=== PATIENT | female | born 1955 | race Caucasian/White ===

== ENCOUNTER 2018-07-24 15:05 | Emergency (ER) | payer BC ==
[2018-07-24 16:04] LABS: #Basophils 0.1 thou/uL (0.0-0.2); #Lymphocytes 1.8 thou/uL (1.20-3.40); #Monocytes 0.5 thou/uL (0.11-0.59); #Neutrophils 2.6 thou/uL (1.40-6.50); %Basophils 1.2 % (0.0-1.0); %Eosinophils 0.5 % (0.0-10.0); %Lymphocytes 35.6 % (21.0-51.0); %Monocytes 10.9 % (0.0-10.0); %Neutrophils 51.8 % (42.0-75.0); Hemoglobin 13.7 g/dL (12.0-16.0); Mean Corpuscular HGB CONC 34.1 g/dL (32.0-36.0); Mean Corpuscular Hemoglobin 32.9 pg (27.0-31.0); Mean Corpuscular Volume 96.5 fL (78.0-98.0); Mean Platelet Volume 6.8 fL (7.4-10.4); Platelet Count 318 thou/uL (130-400); RBC Distribution Width 11.2 % (11.5-14.5); Red Blood Cell (RBC) Count 4.16 mill/uL (4.20-5.40); White Blood Cell (WBC) Count 4.9 thou/uL (4.8-10.8)
[2018-07-24 16:28] LABS: ALT (SGPT) 32 U/L (8-55); AST (SGOT) 26 U/L (5-34); Albumin 4.3 g/dL (3.4-4.8); Alkaline Phosphatase 65 U/L (40-150); Anion Gap 13 mmol/L (10-20); BUN (Urea Nitrogen) 10 mg/dL (9.8-20.1); Bilirubin, Total 0.8 mg/dL (0.2-1.2); Calc. Creatinine Clearance 0 mL/min (70-130); Carbon Dioxide 26 mmol/L (23-31); Chloride 101 mmol/L (98-107); Estimated GFR-MDRD 73; Globulin 2.4 g/dL (2.4-3.5); Glucose 129 mg/dL (80-115); Lipase 18 U/L (8-78); Potassium 3.6 mmol/L (3.5-5.1); Protein, Total 6.7 g/dL (6.0-8.3); Sodium 136 mmol/L (136-145)
[2018-07-24] MEDS ORDERED: Iopamidol 370 76% 50 ML VIAL FS ONE (16:43)
[2018-07-24] MEDS ORDERED: ISOVUE-370 76%-LOCM 1 ML ONE (16:43)
[2018-07-24 17:18] LABS: Bilirubin Negative (Negative); Blood, Urine Negative (Negative); Clarity CLEAR (Clear); Glucose, Urine (Dipstick) Negative (Negative); Leukocyte Negative (Negative); Nitrite Negative (Negative); Protein, Urine (Dipstick) Negative (Neg-Trace); Specific Gravity, Urine 1.009 (1.002-1.036); Urobilinogen 0.2 mg/dL (0.2-1.0); pH, Urine 6.5 (5.0-9.0)
--- NOTE | 2018-07-24 18:10 | RAD ---
CHEST ONE VIEW: 07/24/18 HISTORY: Chest pain. COMPARISON: Radiograph 2015. FINDINGS: There is moderate dextroscoliosis thoracolumbar spine. No pneumothorax. No effusion. No acute osseous abnormality. Cardiac silhouette and mediastinal contours are similar. IMPRESSION: No acute intrathoracic abnormality. POS: [facility]
--- NOTE | 2018-07-24 20:37 | CT ---
CT ABDOMEN WITH CONTRAST CT PELVIS WITH CONTRAST 07/24/18 HISTORY: Right sided abdominal pain with initial onset two weeks ago. COMPARISON: None. TECHNIQUE: An abdomen and pelvic CT are performed with IV contrast. Enteric contrast administered. FINDINGS: ABDOMEN CT: The lung bases are clear. 8 mm hypodensity in the hepatic dome too small to characterize but is statistically favored to be a h epatic cyst. Hypodensities along the periphery of the spleen are also too small to characterize but are presumed t o represent small subcapsular cysts. The pancreas and adrenal glands have appropriate enhancement. No gastrohepatic, retrocrural or periportal lymphadenopathy. No mesenteric mass, lymphadenopathy, free air or free fluid. Symmetric enhancement of the kidneys. No obstructive uropathy. Decreased intra-abdominal fat limits evaluation for inflammatory change. No mesenteric mass, lymphade nopathy, free air or free fluid. Gastric mucosa, duodenum and multiple normal caliber small bowel loops are identified. There is mild thickening of the jejunal mucosa. Correlate for inflammation or infection. Ileocecal junction is norm al. Normal caliber air filled appendix is identified. No periappendiceal inflammation. Scattered feca l material in a nondistended, nondilated colon. Unremarkable gallbladder. CT PELVIS: No mass, lymphadenopathy, free air or free fluid. Urinary bladder is unremarkable. The uterus and adn exal structures are unremarkable. No lytic or blastic lesions in the osseous structures. IMPRESSION: 1. Normal caliber appendix. 2. Hypodensity in the spleen and liver, too small to characterize but statistically favored to b e cysts. 3. No evidence of obstructive uropathy. 4. Mucosal prominence of the jejunum. Correlate for infection or inflammatory process involving the jejunum. POS: [facility]
== END 2018-07-24 20:50 | disposition home or self-care (01) ==
LOC: ERS 15:05
DX: K76.89 Other specified diseases of liver (principal); D73.4 Cyst of spleen; I10 Essential (primary) hypertension; F17.210 Nicotine dependence, cigarettes, uncomplicated
CPT/HCPCS: 36415; 71045; 74177; 80053; 81003; 83605; 83690; 84484; 85025; 93005; 96360; 96361; Q9966; Q9967

== ENCOUNTER 2018-08-11 08:06 | Outpatient (CLI) | payer BC ==
--- NOTE | 2018-08-11 09:49 | ULT ---
RIGHT UPPER QUADRANT ULTRASOUND: History: Right upper quadrant pain. FINDINGS: Real-time imaging of the right upper quadrant shows a normal sized gallbladder. There is non-shadowin g adherent echogenic focus on the gallbladder wall measuring 2-3 mm in size compatible with small tati yp. There also appears to be a second small polyp present. The common duct is in the 3 mm range. Tech nologist reports a negative ultrasound Dominguez's sign. Right kidney is normal in size and nonobstructe d. Pancreas region is normal. Some trace free fluid is noted. IMPRESSION: 1. One, and possibly two small 2 mm gallbladder polyps. No stones identified. 2. Trace ascites adjacent to the liver. Incidental note is made of a small 1.5 cm hepatic cyst. The l iver measures 16.4 cm in length. POS: [facility]
== END 2018-08-11 08:07 | disposition home or self-care (01) ==
LOC: BICULT 08:06
PROVIDERS: ATTEND Internal Medicine Gastroenterology
DX: R10.11 Right upper quadrant pain (principal); R18.8 Other ascites
CPT/HCPCS: 76705

== ENCOUNTER 2023-07-16 17:40 | Emergency (ER) | payer MEDICARE, OTHER | END 2023-07-16 20:06 | disposition home or self-care (01) | LOC: ERS 17:40 | DX: S52.021A Displaced fracture of olecranon process without intraarticular extension of right ulna, initial encounter for closed fracture (principal); S59.901A Unspecified injury of right elbow, initial encounter; I10 Essential (primary) hypertension; W01.0XXA Fall on same level from slipping, tripping and stumbling without subsequent striking against object, initial encounter; Y93.01 Activity, walking, marching and hiking | CPT/HCPCS: 29105 ==

== ENCOUNTER 2023-07-21 11:09 | Outpatient (CLI) | payer MEDICARE, OTHER | END 2023-07-21 11:10 | disposition home or self-care (01) | LOC: LABBT 11:09 | PROVIDERS: ATTEND Orthopaedic Surgery | DX: Z01.810 Encounter for preprocedural cardiovascular examination (principal); S52.021A Displaced fracture of olecranon process without intraarticular extension of right ulna, initial encounter for closed fracture | CPT/HCPCS: 93005; 93010 ==

== ENCOUNTER 2024-02-26 09:57 | Emergency (ER) | payer MEDICARE, OTHER ==
[2024-02-26] MEDS ORDERED: Ketorolac Tromethamine 30 MG (1 mL) VIAL ONE (10:55)
== END 2024-02-26 11:19 | disposition home or self-care (01) ==
LOC: ERS 09:57
DX: M54.50 Low back pain, unspecified (principal); I10 Essential (primary) hypertension; X50.9XXA Other and unspecified overexertion or strenuous movements or postures, initial encounter
CPT/HCPCS: 96372; 99283; J1885

== ENCOUNTER 2024-03-10 09:13 | Outpatient (CLI) | payer MEDICARE, OTHER | END 2024-03-10 09:14 | disposition home or self-care (01) | LOC: BICRAD 09:13 | PROVIDERS: ATTEND Family Medicine | DX: M54.42 Lumbago with sciatica, left side (principal); M47.816 Spondylosis without myelopathy or radiculopathy, lumbar region; R93.7 Abnormal findings on diagnostic imaging of other parts of musculoskeletal system | CPT/HCPCS: 72100 ==

== ENCOUNTER 2024-03-15 08:25 | Outpatient (CLI) | payer MEDICARE, OTHER | END 2024-03-15 08:26 | disposition home or self-care (01) | LOC: MRI 08:25 | PROVIDERS: ATTEND Family Medicine | DX: M51.16 Intervertebral disc disorders with radiculopathy, lumbar region (principal); M47.26 Other spondylosis with radiculopathy, lumbar region; M89.9 Disorder of bone, unspecified | CPT/HCPCS: 72148 ==

== ENCOUNTER 2024-03-16 14:23 | Outpatient (CLI) | payer MEDICARE, OTHER | END 2024-03-16 14:24 | disposition home or self-care (01) | LOC: BICRAD 14:23 | PROVIDERS: ATTEND Family Medicine | DX: C79.51 Secondary malignant neoplasm of bone (principal); R91.8 Other nonspecific abnormal finding of lung field | CPT/HCPCS: 71046 ==

== ENCOUNTER 2024-03-25 13:15 | Outpatient (CLI) | payer MEDICARE, OTHER | END 2024-03-25 13:16 | disposition home or self-care (01) | LOC: PET 13:15 | PROVIDERS: ATTEND Internal Medicine | DX: C34.31 Malignant neoplasm of lower lobe, right bronchus or lung (principal); R91.8 Other nonspecific abnormal finding of lung field; M89.9 Disorder of bone, unspecified | CPT/HCPCS: 78815; A9552 ==

== ENCOUNTER → 2024-03-29 | Day surgery (SDC) | payer MEDICARE, OTHER ==
[~2024-03-29] MED LIST: Lidocaine 1% w/Epinephrine 1:100K 20 ML VIAL ONE; Midazolam HCl 2 mg/2 ml Vial ONE; Sodium Bicarbonate 2.5 MEQ/5 ML SDV ONE; fentaNYL 50 mcg/mL 1 mL Vial ONE
[2024-03-29 12:02] LABS: INR-International Normal Ratio 1.1; PTT 29.8 sec (22.9-36.1); Prothrombin Time 13.8 sec (12.0-14.7)
== END ==
LOC: CT 11:31
PROVIDERS: ATTEND Radiology Radiation Oncology
PROC: 07DR3ZX Extraction of Iliac Bone Marrow, Percutaneous Approach, Diagnostic (ICD-10-PCS; principal; 2024-03-29)
DX: C79.51 Secondary malignant neoplasm of bone (principal); Z79.899 Other long term (current) drug therapy; Z88.1 Allergy status to other antibiotic agents
CPT/HCPCS: 20225; 77012; 85610; 85730; 88333; 88334; J2250; J3010; 88307; 88341; 88342; 99152; 99153

== ENCOUNTER 2024-04-12 16:28 | Inpatient (IN) | payer MEDICARE, OTHER ==
[2024-04-12 19:29] LABS: #Basophils 0.03 10x3/uL (0.0-0.2); %Basophils 0.4 % (0.0-1.0); %Eosinophils 3.9 % (0.0-10.0); %Lymphocytes 6.5 % (21.0-51.0); %Neutrophils 78.5 % (42.0-75.0); Hematocrit 34.3 % (36.0-47.0); Hemoglobin 11.6 g/dL (12.0-16.0); Mean Corpuscular HGB CONC 33.8 g/dL (32.0-36.0); Mean Corpuscular Hemoglobin 30.2 pg (27.0-31.0); Mean Corpuscular Volume 89.3 fL (78.0-98.0); Mean Platelet Volume 8.7 fL (7.4-10.4); Platelet Count 496 10x3/uL (130-400); RBC Distribution Width 12.4 % (11.5-14.5); Red Blood Cell (RBC) Count 3.84 mill/uL (4.20-5.40)
[2024-04-12 19:43] LABS: ALT (SGPT) 11 U/L (8-55); AST (SGOT) 16 U/L (5-34); Albumin 3.3 g/dL (3.4-4.8); Alkaline Phosphatase 115 U/L (40-110); Anion Gap 17 mmol/L (10-20); BUN (Urea Nitrogen) 14 mg/dL (9.8-20.1); Bilirubin, Total 0.7 mg/dL (0.2-1.2); Calc. Creatinine Clearance 0 mL/min (70-130); Calcium 9.8 mg/dL (7.8-10.44); Carbon Dioxide 23 mmol/L (23-31); Chloride 92 mmol/L (98-107); Estimated GFR 94; Globulin 4.2 g/dL (2.4-3.5); Glucose 93 mg/dL (80-115); Potassium 4.1 mmol/L (3.5-5.1); Protein, Total 7.5 g/dL (5.8-8.1); Sodium 128 mmol/L (136-145)
[2024-04-12] MEDS ORDERED: Morphine 4 MG/ML VIAL ONE (22:15)
[2024-04-12] MEDS ORDERED: Ondansetron PF 4 MG/2 ML Vial ONE (22:15)
[2024-04-12] MEDS ORDERED: Ketorolac Tromethamine 30 MG (1 mL) VIAL ONE (22:15)
[2024-04-12] MEDS ORDERED: Ondansetron PF 4 MG/2 ML Vial IVP PRN (23:15)
[2024-04-12] MEDS ORDERED: Acetaminophen 325 MG TAB PO PRN (23:15)
[2024-04-13] MEDS ORDERED: Morphine 4 MG/ML VIAL ONE (00:27)
[2024-04-13] MEDS: Morphine 2 MG/ML VIAL SLOW IVP PRN (00:47)
[2024-04-13] MEDS: Sodium Chloride 0.9% 1,000 ML IV SCH (00:48)
[2024-04-13 01:56] VITALS: BMI 17.7
[2024-04-13] MEDS ORDERED: HYDROcodone/Acetaminophen 10/325 mg Tablet ONE (02:15)
[2024-04-13] MEDS: HYDROcodone/Acetaminophen 10/325 mg Tablet PO PRN (02:24)
[2024-04-13] MEDS: fentaNYL 25 mcg Patch TD SCH (05:15)
[2024-04-13] MEDS ORDERED: HYDROmorphone 0.5 MG/0.5 ML SYRINGE ONE (05:17)
[2024-04-13] MEDS: HYDROmorphone 0.5 MG/0.5 ML SYRINGE SLOW IVP SCH ×2 (05:28→10:43)
[2024-04-13 06:11] LABS: #Basophils 0.04 10x3/uL (0.0-0.2); %Basophils 0.6 % (0.0-1.0); %Eosinophils 6.8 % (0.0-10.0); %Lymphocytes 7.1 % (21.0-51.0); %Monocytes 11.3 % (0.0-10.0); %Neutrophils 73.6 % (42.0-75.0); Hematocrit 31.1 % (36.0-47.0); Hemoglobin 10.6 g/dL (12.0-16.0); Mean Corpuscular HGB CONC 34.1 g/dL (32.0-36.0); Mean Corpuscular Hemoglobin 30.1 pg (27.0-31.0); Mean Corpuscular Volume 88.4 fL (78.0-98.0); Mean Platelet Volume 8.7 fL (7.4-10.4); Platelet Count 422 10x3/uL (130-400); RBC Distribution Width 12.3 % (11.5-14.5); Red Blood Cell (RBC) Count 3.52 mill/uL (4.20-5.40)
[2024-04-13 06:25] LABS: Anion Gap 15 mmol/L (10-20); BUN (Urea Nitrogen) 12 mg/dL (9.8-20.1); Calc. Creatinine Clearance 70 mL/min (70-130); Calcium 9.1 mg/dL (7.8-10.44); Carbon Dioxide 24 mmol/L (23-31); Chloride 95 mmol/L (98-107); Estimated GFR 97; Glucose 65 mg/dL (80-115); Potassium 3.5 mmol/L (3.5-5.1); Sodium 130 mmol/L (136-145)
[2024-04-13] MEDS ORDERED: fentaNYL 25 mcg Patch TD SCH (08:37)
[2024-04-13] MEDS ORDERED: Non-Formulary Item 1 EACH (Losartan Potassium [Losartan Potassium] 50 MG Tablet) PO SCH (09:00)
[2024-04-13] MEDS: Senokot S 8.6-50 MG TAB PO SCH (09:42)
[2024-04-13] MEDS: Losartan 25 MG TAB PO SCH (09:43)
[2024-04-13] MEDS: fentaNYL 50 mcg/hour Patch TD SCH (09:43)
[2024-04-13] MEDS: Methocarbamol 500 MG TAB PO SCH ×2 (10:44→14:46)
[2024-04-13] MEDS: Morphine 4 MG/ML VIAL SLOW IVP PRN (13:06)
[2024-04-13] MEDS: Ketorolac Tromethamine 30 MG (1 mL) VIAL IVP SCH (14:46)
[2024-04-13] MEDS: Mirtazapine 15 MG TAB PO SCH (20:50)
[2024-04-13] MEDS: Ketorolac Tromethamine 30 MG (1 mL) VIAL IVP PRN (20:50)
[2024-04-14 05:22] LABS: #Basophils Less than 0.03 10x3/uL (0.0-0.2); %Basophils 0.4 % (0.0-1.0); %Eosinophils 6.6 % (0.0-10.0); %Lymphocytes 7.3 % (21.0-51.0); %Monocytes 12.2 % (0.0-10.0); %Neutrophils 72.6 % (42.0-75.0); Anion Gap 13 mmol/L (10-20); BUN (Urea Nitrogen) 9 mg/dL (9.8-20.1); Calc. Creatinine Clearance 72 mL/min (70-130); Calcium 8.6 mg/dL (7.8-10.44); Carbon Dioxide 25 mmol/L (23-31); Chloride 97 mmol/L (98-107); Estimated GFR 98; Glucose 91 mg/dL (80-115); Hematocrit 30.4 % (36.0-47.0); Hemoglobin 10.2 g/dL (12.0-16.0); Mean Corpuscular HGB CONC 33.6 g/dL (32.0-36.0); Mean Corpuscular Hemoglobin 29.7 pg (27.0-31.0); Mean Corpuscular Volume 88.6 fL (78.0-98.0); Mean Platelet Volume 8.7 fL (7.4-10.4); Platelet Count 391 10x3/uL (130-400); Potassium 3.5 mmol/L (3.5-5.1); RBC Distribution Width 12.3 % (11.5-14.5); Red Blood Cell (RBC) Count 3.43 mill/uL (4.20-5.40); Sodium 131 mmol/L (136-145)
[2024-04-14] MEDS: Polyethylene Glycol 3350 17 GM Packet PO SCH (08:53)
[2024-04-14] MEDS: Morphine ER 15 MG TAB PO SCH (10:05)
[2024-04-14 11:05] VITALS: BMI 17.7
[2024-04-14] MEDS ORDERED: Milk Of Magnesia 30 ML UDCUP PO PRN (13:14)
[2024-04-15] MEDS: Multivit, Therapeutic 1 TAB PO SCH (08:18)
[2024-04-15] MEDS: Morphine 4 MG/ML VIAL SLOW IVP PRN (10:20)
[2024-04-15] MEDS ORDERED: Lidocaine 1% (PF) 30 ML VIAL ONE (12:52)
[2024-04-15] MEDS ORDERED: Bupivacaine 0.25% HCL 30 ML VIAL ONE (12:52)
[2024-04-15] MEDS ORDERED: EPINEPHrine 1 MG/ML VIAL ONE (12:53)
[2024-04-15] MEDS ORDERED: CEFAZOLIN 1 GM VIAL SLOW IVP SCH (13:00)
[2024-04-15] MEDS ORDERED: CEFAZOLIN 1 GM VIAL ONE (13:22)
[2024-04-15] MEDS ORDERED: Dexamethasone 20 MG/5 ML VIAL ONE (13:45)
[2024-04-15] MEDS ORDERED: PROPOFOL 200 MG/20 ML VIAL ONE (13:45)
[2024-04-15] MEDS ORDERED: fentaNYL 50 mcg/mL 1 mL Vial ONE ×3 (14:28→14:50)
[2024-04-15] MEDS: Morphine ER 30 MG TAB PO SCH (20:28)
[2024-04-15] MEDS: Morphine IR 10 MG/5 ML UDCUP PO PRN (22:49)
[2024-04-16 05:17] LABS: Anion Gap 13 mmol/L (10-20); BUN (Urea Nitrogen) 11 mg/dL (9.8-20.1); Calc. Creatinine Clearance 76 mL/min (70-130); Calcium 9.6 mg/dL (7.8-10.44); Carbon Dioxide 25 mmol/L (23-31); Chloride 98 mmol/L (98-107); Estimated GFR 99; Glucose 126 mg/dL (80-115); Potassium 4.3 mmol/L (3.5-5.1); Sodium 132 mmol/L (136-145)
[2024-04-16] MEDS: Senokot S 8.6-50 MG TAB PO SCH (09:12)
[2024-04-18 14:36] VITALS: BP 155/84; TEMP 99.2
== END 2024-04-18 14:38 | disposition home or self-care (01) | DRG 939 ==
LOC: ERS 16:28 → ERHOLD 23:04 → MSONC 23:07
PROVIDERS: ADMIT Student in an Organized Health Care Education/Training Program; ATTEND Internal Medicine
PROC: 0JH60WZ Insertion of Totally Implantable Vascular Access Device into Chest Subcutaneous Tissue and Fascia, Open Approach (ICD-10-PCS; principal; 2024-04-15)
PROC: 02HV33Z Insertion of Infusion Device into Superior Vena Cava, Percutaneous Approach (ICD-10-PCS; 2024-04-15)
PROC: B5181ZA Fluoroscopy of Superior Vena Cava using Low Osmolar Contrast, Guidance (ICD-10-PCS; 2024-04-15)
PROC: B548ZZA Ultrasonography of Superior Vena Cava, Guidance (ICD-10-PCS; 2024-04-15)
DX: G89.3 Neoplasm related pain (acute) (chronic) (principal); E43 Unspecified severe protein-calorie malnutrition; E87.1 Hypo-osmolality and hyponatremia; C79.49 Secondary malignant neoplasm of other parts of nervous system; C34.91 Malignant neoplasm of unspecified part of right bronchus or lung; C79.51 Secondary malignant neoplasm of bone; Z68.1 Body mass index [BMI] 19.9 or less, adult; F17.210 Nicotine dependence, cigarettes, uncomplicated; K21.9 Gastro-esophageal reflux disease without esophagitis; Z66 Do not resuscitate; Z51.5 Encounter for palliative care; I10 Essential (primary) hypertension; D63.0 Anemia in neoplastic disease; Z71.6 Tobacco abuse counseling; Z91.040 Latex allergy status; Z91.09 Other allergy status, other than to drugs and biological substances; Z92.3 Personal history of irradiation; Z79.899 Other long term (current) drug therapy; Z88.1 Allergy status to other antibiotic agents
CPT/HCPCS: 36415; 71045; 77336; 77387; 77412; 80048; 83930; 83935; 84300; 85025; 85027; 93005; 93010; 96374; 96375; C1788; J0171; J0665; J0690; J1100; J1642; J1885; J2272; J2405; J2704; J3010; J7030

== ENCOUNTER 2024-05-24 09:25 | Inpatient (IN) | payer MEDICARE, OTHER ==
[2024-05-24] MEDS ORDERED: HYDROmorphone 0.5 MG/0.5 ML SYRINGE ONE ×2 (09:47→11:24)
[2024-05-24 10:09] LABS: Hematocrit 26.8 % (36.0-47.0); Hemoglobin 8.9 g/dL (12.0-16.0); Mean Corpuscular HGB CONC 33.2 g/dL (32.0-36.0); Mean Corpuscular Hemoglobin 31.1 pg (27.0-31.0); Mean Corpuscular Volume 93.7 fL (78.0-98.0); Mean Platelet Volume 8.8 fL (7.4-10.4); Platelet Count 236 10x3/uL (130-400); RBC Distribution Width 18.7 % (11.5-14.5); Red Blood Cell (RBC) Count 2.86 mill/uL (4.20-5.40)
[2024-05-24 10:24] LABS: Anion Gap 13 mmol/L (10-20); BUN (Urea Nitrogen) 6 mg/dL (9.8-20.1); Calc. Creatinine Clearance 0 mL/min (70-130); Carbon Dioxide 20 mmol/L (23-31); Chloride 105 mmol/L (98-107); Potassium 3.3 mmol/L (3.5-5.1); Sodium 135 mmol/L (136-145)
[2024-05-24 10:25] LABS: ALT (SGPT) 24 U/L (8-55); AST (SGOT) 23 U/L (5-34); Albumin 2.9 g/dL (3.4-4.8); Alkaline Phosphatase 145 U/L (40-110); Bilirubin, Total 0.4 mg/dL (0.2-1.2); Calcium 7.9 mg/dL (7.8-10.44); Estimated GFR 104; Globulin 2.4 g/dL (2.4-3.5); Glucose 83 mg/dL (80-115); Protein, Total 5.3 g/dL (5.8-8.1)
[2024-05-24 10:31] LABS: Anisocytosis SLIGHT = 6-15 cells HPF (0-5); Band 13 % (5-11); Hypochromia SLIGHT = 6-15 cells HPF (0-5); Lymphocytes 7 % (21-51); Monocytes 5 % (0-10); Neutrophil 75 % (42-75); Platelet Adequacy Comment Platelets Normal; Polychromasia SLIGHT = 2-3 cells HPF (0-2)
[2024-05-24] MEDS ORDERED: oxyCODONE 5 MG TAB PO PRN (11:56)
[2024-05-24] MEDS ORDERED: Glycerin Adult Supp. (12 ct jar) PR PRN (12:10)
[2024-05-24 12:29] VITALS: BMI 17.9
[2024-05-24] MEDS ORDERED: Acetaminophen 500 MG TAB ONE (12:31)
[2024-05-24] MEDS: Acetaminophen 500 MG TAB PO SCH (12:33)
[2024-05-24] MEDS: Morphine IR Tab 15 MG TAB PO PRN (14:57)
[2024-05-24] MEDS: Lactulose 20 GM (30 mL) UDCUP PO SCH (16:25)
[2024-05-24] MEDS: Senokot S 8.6-50 MG TAB PO SCH (20:27)
[2024-05-24] MEDS: Amoxicillin/Potassium Clav 875 MG TAB PO SCH (20:27)
[2024-05-24] MEDS: Morphine ER 30 MG TAB PO SCH (20:29)
[2024-05-24] MEDS: Famotidine 20 MG TAB PO SCH (20:30)
[2024-05-24] MEDS: Ketorolac Tromethamine 30 MG (1 mL) VIAL IVP PRN (23:54)
[2024-05-25 06:09] LABS: Hematocrit 28.6 % (36.0-47.0); Hemoglobin 9.7 g/dL (12.0-16.0); Mean Corpuscular HGB CONC 33.9 g/dL (32.0-36.0); Mean Corpuscular Hemoglobin 31.8 pg (27.0-31.0); Mean Corpuscular Volume 93.8 fL (78.0-98.0); Mean Platelet Volume 8.5 fL (7.4-10.4); Platelet Count 251 10x3/uL (130-400); RBC Distribution Width 18.7 % (11.5-14.5); Red Blood Cell (RBC) Count 3.05 mill/uL (4.20-5.40)
[2024-05-25 06:29] LABS: Band 8 % (5-11); Eosinophils 1 % (0-10); Hypochromia SLIGHT = 6-15 cells (100X) (0-5/hpf); Lymphocytes 9 % (21-51); Monocytes 4 % (0-10); Neutrophil 73 % (42-75); Plasma Cells 0 % (0-0); Platelet Adequacy Comment Appears Adequate; Reactive Lymphocytes 5 % (0-10); Total Cell Count 100
[2024-05-25 07:27] LABS: Anion Gap 12 mmol/L (10-20); BUN (Urea Nitrogen) 8 mg/dL (9.8-20.1); Calc. Creatinine Clearance 84 mL/min (70-130); Carbon Dioxide 24 mmol/L (23-31); Chloride 101 mmol/L (98-107); Estimated GFR 102; Glucose 80 mg/dL (80-115); Potassium 3.9 mmol/L (3.5-5.1); Sodium 133 mmol/L (136-145)
[2024-05-25] MEDS: Naloxegol 12.5 MG TAB PO SCH (08:21)
[2024-05-25] MEDS: Polyethylene Glycol 3350 17 GM Packet PO SCH (08:21)
[2024-05-25] MEDS: Enoxaparin 40 MG (0.4 mL) SYRINGE SC SCH (08:22)
[2024-05-25 14:24] VITALS: BMI 17.9
[2024-05-25] MEDS: HYDROmorphone 0.5 MG/0.5 ML SYRINGE SLOW IVP SCH (22:18)
[2024-05-26 05:44] LABS: Anion Gap 12 mmol/L (10-20); BUN (Urea Nitrogen) 9 mg/dL (9.8-20.1); Calc. Creatinine Clearance 79 mL/min (70-130); Calcium 8.7 mg/dL (7.8-10.44); Carbon Dioxide 25 mmol/L (23-31); Chloride 101 mmol/L (98-107); Estimated GFR 100; Glucose 91 mg/dL (80-115); Potassium 3.9 mmol/L (3.5-5.1); Sodium 134 mmol/L (136-145)
[2024-05-27 05:07] LABS: Anion Gap 12 mmol/L (10-20); BUN (Urea Nitrogen) 10 mg/dL (9.8-20.1); Calc. Creatinine Clearance 75 mL/min (70-130); Calcium 9.2 mg/dL (7.8-10.44); Carbon Dioxide 26 mmol/L (23-31); Chloride 102 mmol/L (98-107); Estimated GFR 99; Glucose 93 mg/dL (80-115); Potassium 4.2 mmol/L (3.5-5.1); Sodium 136 mmol/L (136-145)
[2024-05-28 05:19] LABS: Anion Gap 11 mmol/L (10-20); BUN (Urea Nitrogen) 13 mg/dL (9.8-20.1); Calc. Creatinine Clearance 81 mL/min (70-130); Calcium 8.9 mg/dL (7.8-10.44); Carbon Dioxide 24 mmol/L (23-31); Chloride 101 mmol/L (98-107); Estimated GFR 101; Glucose 100 mg/dL (80-115); Potassium 3.7 mmol/L (3.5-5.1); Sodium 132 mmol/L (136-145)
[2024-05-28] MEDS: Morphine IR 10 MG/5 ML UDCUP PO PRN (10:48)
[2024-05-28] MEDS: Morphine 4 MG/ML VIAL SLOW IVP PRN (12:22)
[2024-05-29 07:31] VITALS: TEMP 98.3
[2024-05-29 12:00] VITALS: BP 145/84
== END 2024-05-29 12:01 | disposition home health service (06) | DRG 947 ==
LOC: ERS 09:25 → ERHOLD 11:42 → MSONC 15:26 → OBSVTOIN 05-26 12:21
PROVIDERS: ADMIT Internal Medicine; ATTEND Family Medicine
DX: G89.3 Neoplasm related pain (acute) (chronic) (principal); E43 Unspecified severe protein-calorie malnutrition; C34.90 Malignant neoplasm of unspecified part of unspecified bronchus or lung; C79.51 Secondary malignant neoplasm of bone; K59.09 Other constipation; I10 Essential (primary) hypertension; Z51.5 Encounter for palliative care; K21.9 Gastro-esophageal reflux disease without esophagitis; Z98.890 Other specified postprocedural states; Z91.040 Latex allergy status; Z88.1 Allergy status to other antibiotic agents; F17.200 Nicotine dependence, unspecified, uncomplicated; Z79.899 Other long term (current) drug therapy
CPT/HCPCS: 71045; 72170; 80048; 80053; 85025; 96372; 96374; 96375; 96376; G0378; J1171; J1642; J1650; J1885; J2272

== ENCOUNTER 2024-06-18 12:30 | Outpatient (CLI) | payer MEDICARE, OTHER | END 2024-06-18 12:31 | disposition home or self-care (01) | LOC: PET 12:30 | PROVIDERS: ATTEND Internal Medicine | DX: C34.31 Malignant neoplasm of lower lobe, right bronchus or lung (principal); M54.59 Other low back pain; R97.8 Other abnormal tumor markers; K76.9 Liver disease, unspecified; M89.9 Disorder of bone, unspecified; R91.8 Other nonspecific abnormal finding of lung field | CPT/HCPCS: 78815 ×2; A9552 ×2 ==

== ENCOUNTER 2024-07-02 11:25 | Emergency (ER) | payer MEDICARE, OTHER ==
[2024-07-02 11:58] LABS: #Basophils Less than 0.03 10x3/uL (0.0-0.2); #Eosinophils Less than 0.03 10x3/uL (0.0-0.7); %Basophils 0.3 % (0.0-1.0); %Eosinophils 0.2 % (0.0-10.0); %Lymphocytes 7.4 % (21.0-51.0); %Monocytes 11.4 % (0.0-10.0); %Neutrophils 80.2 % (42.0-75.0); Hematocrit 35.8 % (36.0-47.0); Hemoglobin 12.4 g/dL (12.0-16.0); Mean Corpuscular HGB CONC 34.6 g/dL (32.0-36.0); Mean Corpuscular Hemoglobin 33.5 pg (27.0-31.0); Mean Corpuscular Volume 96.8 fL (78.0-98.0); Mean Platelet Volume 8.6 fL (7.4-10.4); Platelet Count 441 10x3/uL (130-400); RBC Distribution Width 15.9 % (11.5-14.5)
[2024-07-02 12:12] LABS: ALT (SGPT) Less than 7 U/L (Less than 34); AST (SGOT) 17 U/L (11-34); Albumin 3.1 g/dL (3.1-4.5); Alkaline Phosphatase 113 U/L (40-110); Anion Gap 15 mmol/L (10-20); BUN (Urea Nitrogen) 21 mg/dL (9.8-20.1); Bilirubin, Total 0.5 mg/dL (0.3-1.2); Calc. Creatinine Clearance 0 mL/min (70-130); Calcium 8.8 mg/dL (7.8-10.44); Carbon Dioxide 27 mmol/L (23-31); Chloride 95 mmol/L (98-107); Estimated GFR 98; Globulin 2.8 g/dL (2.4-3.5); Glucose 124 mg/dL (80-115); Lipase 12 U/L (8-78); Magnesium 1.8 mg/dL (1.6-2.6); Potassium 3.5 mmol/L (3.5-5.1); Protein, Total 5.9 g/dL (5.8-8.1); Sodium 133 mmol/L (136-145)
[2024-07-02 12:17] LABS: Troponin I Less than 0.010 ng/mL (< 0.028)
[2024-07-02] MEDS ORDERED: Ondansetron PF 4 MG/2 ML Vial ONE ×2 (12:44→13:04)
[2024-07-02] MEDS ORDERED: Iopamidol-370 76% 500 ML MDV (1 ML CHARGE) ONE (12:47)
[2024-07-02] MEDS ORDERED: Dicyclomine 20 MG/2 ML VIAL ONE (12:48)
[2024-07-02] MEDS ORDERED: Dicyclomine 20 MG TAB ONE (13:03)
[2024-07-02] MEDS ORDERED: Metoclopramide HCl 10 MG (2 mL) VIAL ONE (14:34)
[2024-07-02 15:46] LABS: Bacteria/HPF None Seen HPF (None Seen); Bilirubin Negative (Negative); Blood, Urine Negative (Negative); CAUTI Indications for Culture Dysuria,urgency,freq; Clarity Clear (Clear); Glucose, Urine (Dipstick) Normal (Negative); Ketone, Urine 20 mg/dL (Negative); Leukocyte Negative Leu/uL (Negative); Nitrite Negative (Negative); Protein, Urine (Dipstick) 20 mg/dL (Neg-Trace); RBC/HPF 0-3 HPF (0-3); Squamous Epithelial None Seen HPF (0-3); Urobilinogen Normal mg/dL (Less than 2); WBC/HPF 0-3 HPF (0-3); pH, Urine 5.5 (5.0-9.0)
[2024-07-02 15:49] LABS: Specific Gravity, Urine Greater than 1.060 (1.002-1.036)
[2024-07-02 15:50] LABS: Urine Culture Reflex No No
== END 2024-07-02 16:31 | disposition home or self-care (01) ==
LOC: ERS 11:25
DX: R10.9 Unspecified abdominal pain (principal); R11.2 Nausea with vomiting, unspecified; R19.7 Diarrhea, unspecified; I10 Essential (primary) hypertension
CPT/HCPCS: 71045; 74177; 76705; 80053; 81001; 83690; 83735; 84484; 85025; 93005; 96361; 96365; 96372; 96375; 99284; J2405; J2765; Q9967

== ENCOUNTER 2024-07-18 14:33 | Inpatient (IN) | payer MEDICARE, OTHER ==
[~2024-07-18 14:33] MED LIST changes: +Iopamidol-370 76% 500 ML MDV (1 ML CHARGE) ONE; -Lidocaine 1% w/Epinephrine 1:100K 20 ML VIAL ONE; -Midazolam HCl 2 mg/2 ml Vial ONE; -Sodium Bicarbonate 2.5 MEQ/5 ML SDV ONE; -fentaNYL 50 mcg/mL 1 mL Vial ONE
[2024-07-18 16:36] LABS: Base Excess 2.2 mEq/L (-2.0 to +3.0); Calcium, Ionized (venous) 1.06 mmol/L (1.16-1.32); Hematocrit-VBG 31 % (36.0-47.0); Hemoglobin (Hb) 10.7 g/dL (11.7-16.1); Potassium (VBG) 3.88 mmol/L (3.70-5.30); Sodium 139 mmol/L (133-146); pH (venous) 7.459 (7.32-7.43)
[2024-07-18 16:56] LABS: INR-International Normal Ratio 1.2; PTT 26.8 sec (22.9-36.1); Prothrombin Time 14.9 sec (12.0-14.7)
[2024-07-18 16:57] LABS: ALT (SGPT) 10 U/L (Less than 34); AST (SGOT) 22 U/L (11-34); Albumin 2.4 g/dL (3.1-4.5); Alkaline Phosphatase 95 U/L (40-110); Anion Gap 15 mmol/L (10-20); BUN (Urea Nitrogen) 27 mg/dL (9.8-20.1); Bilirubin, Total 1.1 mg/dL (0.3-1.2); Calc. Creatinine Clearance 0 mL/min (70-130); Calcium 7.9 mg/dL (7.8-10.44); Carbon Dioxide 24 mmol/L (23-31); Chloride 106 mmol/L (98-107); Estimated GFR 103; Globulin 2.6 g/dL (2.4-3.5); Glucose 83 mg/dL (80-115); Lipase 5 U/L (8-78); Potassium 3.7 mmol/L (3.5-5.1); Sodium 141 mmol/L (136-145)
[2024-07-18] MEDS ORDERED: Ondansetron PF 4 MG/2 ML Vial ONE (17:11)
[2024-07-18] MEDS ORDERED: Morphine 4 MG/ML VIAL ONE (17:11)
[2024-07-18 17:17] LABS: Anisocytosis SLIGHT = 6-15 cells HPF (0-5); Band 15 % (5-11); Hematocrit 28.5 % (36.0-47.0); Hemoglobin 9.5 g/dL (12.0-16.0); Large Platelets 2.9 % (0-5); Macrocytosis SLIGHT = 6-15 cells HPF (0-5); Mean Corpuscular HGB CONC 33.3 g/dL (32.0-36.0); Mean Corpuscular Hemoglobin 32.8 pg (27.0-31.0); Mean Corpuscular Volume 98.3 fL (78.0-98.0); Mean Platelet Volume 9.7 fL (7.4-10.4); Metamyelocyte 1 % (0-0); Monocytes 2 % (0-10); Neutrophil 82 % (42-75); Platelet Adequacy Comment Platelets Normal; Platelet Count 160 10x3/uL (130-400); Polychromasia SLIGHT = 2-3 cells HPF (0-2); RBC Distribution Width 14.5 % (11.5-14.5); Smudge Cells 2.9 %
[2024-07-18] MEDS ORDERED: Piperacillin/Tazobactam 4.5 GM VIAL ONE (17:22)
[2024-07-18] MEDS ORDERED: Sodium Chloride 0.9% 100 ML ONE (17:22)
[2024-07-18 17:44] LABS: #Basophils 0.04 10x3/uL (0.0-0.2); #Eosinophils Less than 0.03 10x3/uL (0.0-0.7); %Basophils 0.8 % (0.0-1.0); %Lymphocytes 4.5 % (21.0-51.0); %Monocytes 4.1 % (0.0-10.0); %Neutrophils 88.6 % (42.0-75.0)
[2024-07-18 19:02] LABS: Troponin I 0.178 ng/mL (< 0.028)
[2024-07-18] MEDS ORDERED: Morphine IR Tab 15 MG TAB PO PRN (20:27)
[2024-07-18] MEDS ORDERED: Electrolyte Replacement Protocol FS SCH (20:29)
[2024-07-18] MEDS ORDERED: Acetaminophen 325 MG TAB PO PRN (20:29)
[2024-07-18] MEDS ORDERED: Ondansetron ODT 4 MG TAB PO PRN (20:29)
[2024-07-18 21:07] LABS: Bacteria/HPF 4+ HPF (None Seen); Bilirubin Negative (Negative); Blood, Urine 3+ (Negative); CAUTI Indications for Culture Dysuria,urgency,freq; Clarity Extra Turbid (Clear); Glucose, Urine (Dipstick) Normal (Negative); Ketone, Urine 40 mg/dL (Negative); Leukocyte 500 Leu/uL (Negative); Nitrite 2+ (Negative); Protein, Urine (Dipstick) 600 mg/dL (Neg-Trace); RBC/HPF 0-3 HPF (0-3); Specific Gravity, Urine 1.027 (1.002-1.036); Squamous Epithelial None Seen HPF (0-3); Urobilinogen Normal mg/dL (Less than 2); WBC/HPF Greater than 50 HPF (0-3); pH, Urine 8.5 (5.0-9.0)
[2024-07-18 21:10] LABS: Urine Culture Reflex Yes Yes
[2024-07-18 21:46] LABS: Magnesium 1.8 mg/dL (1.6-2.6)
[2024-07-18] MEDS: Lactated Ringer's 1,000 ML IV SCH (22:01)
[2024-07-18] MEDS: Cefepime 1 GM in Sodium Chloride 0.9% 100 ML IVPB SCH (22:05)
[2024-07-18] MEDS: Gabapentin 300 MG CAP PO SCH (22:11)
[2024-07-18] MEDS: Pantoprazole 40 MG DR.TAB PO SCH (22:11)
[2024-07-18] MEDS: Morphine ER 30 MG TAB PO SCH (22:12)
[2024-07-18] MEDS: Heparin 5,000 UNITS/ML VIAL SC SCH (22:12)
[2024-07-18 22:31] LABS: Lactic Acid 1.91 mmol/L (0.50-2.20)
[2024-07-18] MEDS: metroNIDAZOLE 500 MG in Premix 1 BAG IVPB SCH (22:52)
[2024-07-18] MEDS: Magnesium 2 GM/50 ML(in water) 2 GM in Premix 1 BAG IVPB SCH (23:59)
[2024-07-19 05:34] LABS: Hematocrit 26.2 % (36.0-47.0); Hemoglobin 8.8 g/dL (12.0-16.0); Mean Corpuscular HGB CONC 33.6 g/dL (32.0-36.0); Mean Corpuscular Hemoglobin 33.3 pg (27.0-31.0); Mean Corpuscular Volume 99.2 fL (78.0-98.0); Mean Platelet Volume 9.4 fL (7.4-10.4); Platelet Count 135 10x3/uL (130-400); RBC Distribution Width 14.6 % (11.5-14.5); Red Blood Cell (RBC) Count 2.64 mill/uL (4.20-5.40)
[2024-07-19 05:41] LABS: ALT (SGPT) 11 U/L (Less than 34); AST (SGOT) 19 U/L (11-34); Albumin 2.2 g/dL (3.1-4.5); Alkaline Phosphatase 93 U/L (40-110); Anion Gap 12 mmol/L (10-20); BUN (Urea Nitrogen) 23 mg/dL (9.8-20.1); Calc. Creatinine Clearance 81 mL/min (70-130); Calcium 7.5 mg/dL (7.8-10.44); Carbon Dioxide 26 mmol/L (23-31); Chloride 109 mmol/L (98-107); Estimated GFR 102; Globulin 2.2 g/dL (2.4-3.5); Glucose 106 mg/dL (80-115); Magnesium 2.6 mg/dL (1.6-2.6); Phosphorus 3.2 mg/dL (2.5-4.5); Potassium 3.3 mmol/L (3.5-5.1); Protein, Total 4.4 g/dL (5.8-8.1); Sodium 144 mmol/L (136-145)
[2024-07-19 05:45] LABS: Troponin I 0.162 ng/mL (< 0.028)
[2024-07-19 06:29] LABS: Anisocytosis SLIGHT = 6-15 cells HPF (0-5); Band 10 % (5-11); Eosinophils 1 % (0-10); Hypochromia SLIGHT = 6-15 cells HPF (0-5); Large Platelets 2.9 % (0-5); Lymphocytes 1 % (21-51); Monocytes 3 % (0-10); Neutrophil 85 % (42-75); Platelet Adequacy Comment Platelets Normal; Polychromasia SLIGHT = 2-3 cells HPF (0-2); Smudge Cells 6.9 %; Target Cells SLIGHT = 2-5 cells HPF (0-1); Toxic Granulation MODERATE
[2024-07-19] MEDS ORDERED: Potassium Chloride 20 MEQ TAB PO SCH (08:00)
[2024-07-19] MEDS: Calcium Carbonate 500 MG ChewTAB PO PRN (09:05)
[2024-07-19] MEDS: Potassium Bicarbonate/Cit Ac 20 MEQ TAB PO SCH (09:52)
[2024-07-19] MEDS ORDERED: Methocarbamol 500 MG TAB PO PRN (13:51)
[2024-07-19] MEDS ORDERED: Morphine IR Tab 15 MG TAB PO PRN (13:51)
[2024-07-19] MEDS ORDERED: Prochlorperazine Maleate 5 MG TAB PO PRN (13:51)
[2024-07-19] MEDS ORDERED: Lactulose 20 GM (30 mL) UDCUP PO PRN (13:51)
[2024-07-19] MEDS: Ondansetron PF 4 MG/2 ML Vial IVP PRN (14:29)
[2024-07-19 14:49] LABS: Campy jejuni + coli by PCR Negative (Negative); STEC Shiga Toxin 1+2 Negative (Negative); Salmonella spp. by PCR Negative (Negative); Shigella spp + EIEC by PCR Negative (Negative)
[2024-07-19] MEDS: Gabapentin 300 MG CAP PO SCH (17:28)
[2024-07-19 17:55] LABS: Bacteria/HPF None Seen HPF (None Seen); Bilirubin Negative (Negative); Blood, Urine 2+ (Negative); Clarity Clear (Clear); Glucose, Urine (Dipstick) 30 mg/dL (Negative); Ketone, Urine Negative (Negative); Leukocyte 250 Leu/uL (Negative); Nitrite 2+ (Negative); Protein, Urine (Dipstick) 30 mg/dL (Neg-Trace); RBC/HPF 21-50 HPF (0-3); Squamous Epithelial None Seen HPF (0-3); Transitional Epithelial 0-3 HPF (None Seen); Urobilinogen Normal mg/dL (Less than 2); WBC/HPF Greater than 50 HPF (0-3); pH, Urine 6.5 (5.0-9.0)
[2024-07-19] MEDS: Lactated Ringer's 1,000 ML IV SCH (18:25)
[2024-07-19] MEDS: Morphine ER 30 MG TAB PO SCH (21:18)
[2024-07-19] MEDS: Pantoprazole 40 MG DR.TAB PO SCH (21:20)
[2024-07-20 09:34] VITALS: BMI 16.9
[2024-07-20] MEDS: Diphenoxylate HCl/Atropine Tablet PO SCH (13:19)
[2024-07-20] MEDS ORDERED: Diphenoxylate HCl/Atropine Tablet PO PRN (18:00)
[2024-07-22 11:31] VITALS: BP 132/85; TEMP 97.7
== END 2024-07-22 13:22 | disposition home or self-care (01) | DRG 391 ==
LOC: ERS 14:33 → INTOOBSV 20:04 → MSONC 20:04 → OBSVTOIN 07-19 09:18
PROVIDERS: ADMIT Internal Medicine; ATTEND Internal Medicine
DX: K52.9 Noninfective gastroenteritis and colitis, unspecified (principal); E43 Unspecified severe protein-calorie malnutrition; N39.0 Urinary tract infection, site not specified; Z68.1 Body mass index [BMI] 19.9 or less, adult; C34.90 Malignant neoplasm of unspecified part of unspecified bronchus or lung; E86.0 Dehydration; Z51.5 Encounter for palliative care; Z66 Do not resuscitate; I95.9 Hypotension, unspecified; R11.2 Nausea with vomiting, unspecified; R10.9 Unspecified abdominal pain; I10 Essential (primary) hypertension
CPT/HCPCS: 36415; 71045; 74177; 80053; 81001; 82805; 83605; 83630; 83690; 83735; 84100; 84484; 85025; 85610; 85730; 86850; 86900; 86901; 87077; 87086; 87186; 87324; 87449; 87505; 93005; 94760; 96372; 96374; 96375; 96376; G0378; J0692; J1644; J2270; J2405; J2543; J3475; J7120; Q9967

== ENCOUNTER 2025-01-17 14:00 | Outpatient (CLI) | payer MEDICARE, OTHER | END 2025-01-17 14:01 | disposition home or self-care (01) | LOC: PET 14:00 | PROVIDERS: ATTEND Internal Medicine | DX: M54.59 Other low back pain (principal); C34.31 Malignant neoplasm of lower lobe, right bronchus or lung; R97.8 Other abnormal tumor markers; J18.9 Pneumonia, unspecified organism; S22.079A Unspecified fracture of T9-T10 vertebra, initial encounter for closed fracture | CPT/HCPCS: 78815; A9552 ==

== ENCOUNTER 2025-03-22 09:56 | Outpatient (CLI) | payer MEDICARE, OTHER ==
[2025-03-22 10:28] LABS: Estimated GFR - POC 80.0
== END 2025-03-22 09:57 | disposition home or self-care (01) ==
LOC: SCSMRI 09:56
PROVIDERS: ATTEND Radiology Radiation Oncology
DX: C79.31 Secondary malignant neoplasm of brain (principal); C80.1 Malignant (primary) neoplasm, unspecified; G93.6 Cerebral edema
CPT/HCPCS: 36415; 70553; 76376; 82565

== ENCOUNTER 2025-05-16 09:25 | Outpatient (CLI) | payer MEDICARE, OTHER | END 2025-05-16 09:26 | disposition home or self-care (01) | LOC: SCSMRI 09:25 | PROVIDERS: ATTEND Radiology Radiation Oncology | DX: C79.31 Secondary malignant neoplasm of brain (principal) | CPT/HCPCS: 70553; 76376 ==

== ENCOUNTER 2025-05-18 08:45 | Outpatient (CLI) | payer MEDICARE, OTHER ==
[2025-05-18] MEDS ORDERED: Iopamidol 370 76% 100 ML VIAL ONE (09:55)
== END 2025-05-18 08:46 | disposition home or self-care (01) ==
LOC: CT 08:45
PROVIDERS: ATTEND Internal Medicine
DX: C34.91 Malignant neoplasm of unspecified part of right bronchus or lung (principal); C34.31 Malignant neoplasm of lower lobe, right bronchus or lung; R97.8 Other abnormal tumor markers; M54.59 Other low back pain; R91.1 Solitary pulmonary nodule; J98.4 Other disorders of lung; M89.9 Disorder of bone, unspecified; S22.089A Unspecified fracture of T11-T12 vertebra, initial encounter for closed fracture; J43.9 Emphysema, unspecified; I25.10 Atherosclerotic heart disease of native coronary artery without angina pectoris; I31.39 Other pericardial effusion (noninflammatory); K76.89 Other specified diseases of liver; R93.89 Abnormal findings on diagnostic imaging of other specified body structures; I70.0 Atherosclerosis of aorta; K57.30 Diverticulosis of large intestine without perforation or abscess without bleeding; S22.079A Unspecified fracture of T9-T10 vertebra, initial encounter for closed fracture; G95.89 Other specified diseases of spinal cord
CPT/HCPCS: 71260; 74177; Q9967